=== PATIENT | female | born 1970 | race Caucasian/White ===

== ENCOUNTER 2023-01-01 11:28 | Emergency (ER) | payer BC ==
[2023-01-01 11:36] VITALS: BMI 19.7
[2023-01-01] MEDS ORDERED: ACETAMINOPHEN 1000 MG/100 ML BAG IVPB ONE (11:49)
[2023-01-01] MEDS ORDERED: SODIUM CHLORIDE 0.9% 500 ML INFUS.BAG IV ONE ×2 (11:49→14:09)
[2023-01-01] MEDS ORDERED: METOCLOPRAMIDE HCL INJECTION 10 MG/2 ML VIAL IVPB ONE (11:50)
[2023-01-01] MEDS ORDERED: ACETAMINOPHEN INJECTION 100 ML IVPB ONE (12:13)
[2023-01-01] MEDS ORDERED: METOCLOPRAMIDE HCL INJECTION 10 MG/2 ML VIAL ONE (12:13)
[2023-01-01 12:25] LABS: BASO % 0.2 % (0-2.0); HEMATOCRIT 40.8 % (32.4-45.2); HEMOGLOBIN 13.9 GM/dL (10.7-15.3); LYMPH % 4.1 % (8-40); MCHC 34.1 g/dl (32.0-36.0); MEAN CELL VOLUME 81.9 fl (80-96); MEAN PLT VOLUME 9.6 fl (7.5-11.1); MONO % 7.1 % (3.8-10.2); NEUT % 88.6 % (42.8-82.8); PLATELET COUNT 138 10^3/uL (134-434); RBC 4.98 M/mm3 (3.60-5.2); RDW 12.8 % (11.6-15.6); WHITE BLOOD COUNT 6.6 K/mm3 (4.0-10.0)
[2023-01-01 12:43] LABS: POTASSIUM 3.7 mmol/L (3.5-5.1)
[2023-01-01 12:46] LABS: ALBUMIN 3.9 g/dl (3.4-5.0); BLOOD UREA NITROGEN 14.9 mg/dL (7-18); CALCIUM 8.5 mg/dL (8.5-10.1)
[2023-01-01 12:49] LABS: CREATININE 1.1 mg/dL (0.55-1.3)
[2023-01-01 12:50] LABS: BILIRUBIN,TOTAL 0.4 mg/dL (0.2-1)
[2023-01-01 16:01] VITALS: BP 91/55; PULSE 70; RESP 16; TEMP 98.1
== END 2023-01-01 15:55 | disposition home or self-care (01) ==
LOC: JER 11:28 → JERFT 11:28
PROC: 3E033NZ Introduction of Analgesics, Hypnotics, Sedatives into Peripheral Vein, Percutaneous Approach (ICD-10-PCS; principal; 2023-01-01)
PROC: 3E033GC Introduction of Other Therapeutic Substance into Peripheral Vein, Percutaneous Approach (ICD-10-PCS; 2023-01-01)
DX: R50.9 Fever, unspecified (principal); R05.9 Cough, unspecified; R11.2 Nausea with vomiting, unspecified; R51.9 Headache, unspecified; R42 Dizziness and giddiness; J10.1 Influenza due to other identified influenza virus with other respiratory manifestations; Z20.822 Contact with and (suspected) exposure to COVID-19
CPT/HCPCS: 0241U-QW; 36415; 71046-TC-FY; 80053; 83690; 84484; 85025; 87651; 93005; 93010; 99285-25